=== PATIENT | female | born 1995 ===

== ENCOUNTER 2017-01-19 15:21 | Emergency (ER) | payer MEDICAID ==
[2017-01-19 15:21] VITALS: BMI 26.9
[2017-01-19 15:34] VITALS: BP 115/75; PULSE 70; RESP 16; TEMP 98; O2SAT 100
--- NOTE | 2017-01-19 15:55 | ED PDOC ---
HPI: Female Pain Time Seen by Provider: 01/19/17 15:35 Chief Complaint (Nursing): Female Genitourinary Chief Complaint (Provider): Menstrual cramps History Per: Patient History/Exam Limitations: no limitations Onset/Duration Of Symptoms: Days (x1) Current Symptoms Are (Timing): Still Present Associated Symptoms: denies: Fever, Nausea, Vomiting, Back Pain Additional Complaint(s): Karissa Hudson is a 21 year old female, with no past medical history, who presents to the emergency department complaining of menstrual cramps onset since today. Patient denies any fever, nausea, vomit, and back pain. She reports her last menstrual cycle was 2 months ago, and today is the first day of her period. She states she has been sexually active but doesn't take control or morning after pills. No further medical complaints. PMD: None provided. Abnormal Vaginal Bleeding: No Last Menstral Period: 2 months ago Past Medical History Reviewed: Historical Data, Nursing Documentation, Vital Signs Vital Signs: Last Vital Signs Temp 98 F 01/19/17 15:31 Pulse 70 01/19/17 15:31 Resp 16 01/19/17 15:31 BP 115/75 01/19/17 15:31 Pulse Ox 100 01/19/17 15:31 - Medical History PMH: No Chronic Diseases - Family History Family History: States: Unknown Family Hx - Home Medications Home Medications: Ambulatory Orders Medication Instructions Recorded Clindamycin [Cleocin] 300 mg PO TID #30 cap 07/07/16 Ibuprofen [Motrin Tab] 800 mg PO Q8 PRN #20 tab 07/07/16 Ketorolac Tromethamine [Toradol] 10 mg PO TID #20 cap 01/19/17 - Allergies Allergies/Adverse Reactions: Allergies Allergy/AdvReac Type Severity Reaction Status Date / Time No Known Allergies Allergy Verified 07/07/16 14:58 Review of Systems ROS Statement: Except As Marked, All Systems Reviewed And Found Negative Constitutional: Negative for: Fever Gastrointestinal: Negative for: Nausea, Vomiting Genitourinary Female: Positive for: Vaginal Bleeding, Pelvic Pain Musculoskeletal: Negative for: Back Pain Physical Exam - Reviewed Nursing Documentation Reviewed: Yes Vital Signs Reviewed: Yes - Physical Exam Appears: Positive for: Well, Non-toxic, No Acute Distress Head Exam: Positive for: ATRAUMATIC, NORMAL INSPECTION, NORMOCEPHALIC Skin: Positive for: Normal Color, Warm, Dry Eye Exam: Positive for: Normal appearance Respiratory: Positive for: Normal Breath Sounds. Negative for: Respiratory Distress Gastrointestinal/Abdominal: Positive for: Normal Exam, Bowel Sounds, Soft Pelvic Exam: Negative for: Other (No pelvic tenderness) Back: Positive for: Normal Inspection. Negative for: L CVA Tenderness, R CVA Tenderness Neurologic/Psych: Positive for: Alert, Oriented - ECG O2 Sat by Pulse Oximetry: 100 (RA) Pulse Ox Interpretation: Normal Medical Decision Making Medical Decision Making: Initial Impression: Menstrual cramps Initial Plan: --Urine dipstick --Urine --Ultram 50mg PO --reevaluation-pt improved in ED d/c home with f/u to obgyn Scribe Attestation: Documented by Bharath Howard, acting as a scribe for Melissa GALDAMEZ. Provider Scribe Attestation: All medical record entries made by the Scribe were at my direction and personally dictated by me. I have reviewed the chart and agree that the record accurately reflects my personal performance of the history, physical exam, medical decision making, and the department course for this patient. I have also personally directed, reviewed, and agree with the discharge instructions and disposition. Disposition - Clinical Impression Clinical Impression: Menstrual abnormality, Menstrual cramps - Patient ED Disposition Is Patient to be Admitted: No Counseled Patient/Family Regarding: Studies Performed, Diagnosis, Need For Followup, Rx Given - Disposition [facility] Disposition: Routine/Home Disposition Time: 23:56 Condition: STABLE Prescriptions: Ketorolac Tromethamine [Toradol] 10 mg PO TID #20 cap Instructions: Menstruation (ED) Forms: [facility] ED School/Work Excuse
== END 2017-01-19 17:19 | disposition home or self-care (01) ==
LOC: H.ER 15:21
DX: N92.6 Irregular menstruation, unspecified (principal)

== ENCOUNTER 2017-03-21 18:25 | Emergency (ER) | payer MEDICAID ==
[2017-03-21 18:25] VITALS: BMI 26.9
[2017-03-21 18:52] VITALS: BP 122/96; PULSE 72; RESP 18; TEMP 97.9; O2SAT 99
--- NOTE | 2017-03-21 19:44 | ED PDOC ---
HPI: Dental Pain/Injury Time Seen by Provider: 03/21/17 18:55 Chief Complaint (Nursing): ENT Problem Chief Complaint (Provider): Dental pain History Per: Patient History/Exam Limitations: no limitations Onset/Duration Of Symptoms: Days (x2) Current Symptoms Are (Timing): Still Present Additional Complaint(s): Karissa is a 21 y/o female who presents to the ED complaining of left-sided tooth and jaw pain for 2 days. She states pain radiates to left ear. No fever or chills. Patient has been taking Advil and Tylenol with minimal relief, last dose was around 12PM. She has not yet seen a dentist for symptoms. PMD: Lion Alarcon Past Medical History Reviewed: Historical Data, Nursing Documentation, Vital Signs Vital Signs: Last Vital Signs Temp 97.9 F 03/21/17 18:50 Pulse 72 03/21/17 18:50 Resp 18 03/21/17 18:50 BP 122/96 H 03/21/17 18:50 Pulse Ox 99 03/21/17 18:50 - Medical History PMH: No Chronic Diseases - Surgical History Surgical History: No Surg Hx - Family History Family History: States: No Known Family Hx - Living Arrangements Living Arrangements: With Family - Social History Current smoker - smoking cessation education provided: No Alcohol: None Drugs: Denies - Home Medications Home Medications: Ambulatory Orders Medication Instructions Recorded Clindamycin [Cleocin] 300 mg PO TID #30 cap 07/07/16 Ibuprofen [Motrin Tab] 800 mg PO Q8 PRN #20 tab 07/07/16 Ketorolac Tromethamine [Toradol] 10 mg PO TID #20 cap 01/19/17 Clindamycin [Cleocin] 300 mg PO TID #21 cap 03/21/17 Ibuprofen [Motrin Tab] 800 mg PO Q8 PRN #20 tab 03/21/17 - Allergies Allergies/Adverse Reactions: Allergies Allergy/AdvReac Type Severity Reaction Status Date / Time No Known Allergies Allergy Verified 07/07/16 14:58 Review of Systems ROS Statement: Except As Marked, All Systems Reviewed And Found Negative Constitutional: Negative for: Fever, Chills ENT: Positive for: Ear Pain (Left), Other (Left-sided dental pain) Neurological: Negative for: Headache, Dizziness Physical Exam - Reviewed Nursing Documentation Reviewed: Yes Vital Signs Reviewed: Yes - Physical Exam Appears: Positive for: Well, Non-toxic, No Acute Distress Head Exam: Positive for: ATRAUMATIC, NORMAL INSPECTION, NORMOCEPHALIC Skin: Positive for: Normal Color. Negative for: Rash Eye Exam: Positive for: Normal appearance ENT: Positive for: TM Is/Are (normal bilaterally), Other (Tenderness to palpation of the left lower mandible teeth with slight gingival swelling. No dental abscess.). Negative for: Pharyngeal Erythema Neck: Positive for: Normal, Painless ROM, Supple Neurologic/Psych: Positive for: Alert, Oriented - Laboratory Results Urine POC: Negative - ECG O2 Sat by Pulse Oximetry: 99 (RA) Pulse Ox Interpretation: Normal Medical Decision Making Medical Decision Making: Time: 19:33 Impression: dental pain Initial Plan: --Urine --Toradol 30 mg IM Will d/c with rx motrin and clindamycin. Patient was instructed to follow up with dentist VANNESA. Scribe Attestation: Documented by Tori Mathew, acting as a scribe for Sherie Polk PA-C Provider Scribe Attestation: All medical record entries made by the Scribe were at my direction and personally dictated by me. I have reviewed the chart and agree that the record accurately reflects my personal performance of the history, physical exam, medical decision making, and the department course for this patient. I have also personally directed, reviewed, and agree with the discharge instructions and disposition. Disposition - Clinical Impression Clinical Impression: Pain, dental - Patient ED Disposition Is Patient to be Admitted: No Counseled Patient/Family Regarding: Diagnosis, Need For Followup, Rx Given - Disposition Referrals: [facility] [Outside] Disposition: Routine/Home Disposition Time: 20:08 Condition: STABLE Additional Instructions: Take prescription medications as directed. Follow-up as soon as possible with dentist. Prescriptions: Clindamycin [Cleocin] 300 mg PO TID #21 cap Ibuprofen [Motrin Tab] 800 mg PO Q8 PRN #20 tab PRN Reason: Pain, Moderate (4-7) Instructions: Toothache (ED) Forms: [facility] (Romansh)
== END 2017-03-21 20:33 | disposition home or self-care (01) ==
LOC: H.ER 18:25
DX: K08.89 Other specified disorders of teeth and supporting structures (principal); J02.9 Acute pharyngitis, unspecified
CPT/HCPCS: 81025; 96372; 99281; J1885

== ENCOUNTER 2018-09-17 16:03 | Emergency (ER) | payer MEDICAID ==
[2018-09-17 16:04] VITALS: BMI 26.9
[2018-09-17 16:14] VITALS: BP 115/73; PULSE 76; RESP 16; TEMP 98.5; O2SAT 100
[2018-09-17] MEDS ORDERED: Tdap Vaccine 0.5 ml Vial (10-64 yrs) IM ONE ×2 (16:45→17:07)
--- NOTE | 2018-09-17 16:48 | ED PDOC ---
HPI: General Adult Time Seen by Provider: 09/17/18 16:46 Chief Complaint (Nursing): Abnormal Skin Integrity Chief Complaint (Provider): abscess History Per: Patient (23 y/o female here with abscess/swelling noted x 1 day right axilla. Denies any fevers/chills. Unsure of tetanus status.) Past Medical History Reviewed: Historical Data, Nursing Documentation, Vital Signs Vital Signs: Last Vital Signs Temp 98.5 F 09/17/18 16:10 Pulse 76 09/17/18 16:10 Resp 16 09/17/18 16:10 BP 115/73 09/17/18 16:10 Pulse Ox 100 09/17/18 16:10 - Family History Family History: States: Unknown Family Hx - Home Medications Home Medications: Ambulatory Orders Medication Instructions Recorded Clindamycin [Cleocin] 300 mg PO TID #30 cap 07/07/16 Ibuprofen [Motrin Tab] 800 mg PO Q8 PRN #20 tab 07/07/16 Ketorolac Tromethamine [Toradol] 10 mg PO TID #20 cap 01/19/17 Clindamycin [Cleocin] 300 mg PO TID #21 cap 03/21/17 Ibuprofen [Motrin Tab] 800 mg PO Q8 PRN #20 tab 03/21/17 Cephalexin [Keflex] 500 mg PO BID #14 capsule 09/17/18 Ibuprofen [Motrin] 600 mg PO Q8 PRN #21 tab 09/17/18 Sulfamethoxazole/Trimethoprim 2 tab PO BID #28 tablet 09/17/18 [Bactrim Ds Tablet] - Allergies Allergies/Adverse Reactions: Allergies Allergy/AdvReac Type Severity Reaction Status Date / Time No Known Allergies Allergy Verified 07/07/16 14:58 Review of Systems ROS Statement: Except As Marked, All Systems Reviewed And Found Negative Physical Exam - Reviewed Nursing Documentation Reviewed: Yes Vital Signs Reviewed: Yes - Physical Exam Appears: Positive for: Well, Non-toxic, No Acute Distress Head Exam: Positive for: ATRAUMATIC, NORMAL INSPECTION, NORMOCEPHALIC Skin: Positive for: Normal Color, Warm, DRY Eye Exam: Positive for: EOMI, Normal appearance, PERRL ENT: Positive for: Normal ENT Inspection Neck: Positive for: Normal, Painless ROM Cardiovascular/Chest: Positive for: Regular Rate, Rhythm Respiratory: Positive for: CNT, Normal Breath Sounds Gastrointestinal/Abdominal: Positive for: Normal Exam, Soft Back: Positive for: Normal Inspection Extremity: Positive for: Normal ROM, Other (2.5 cm region of swelling induration and surrounding erythema) Neurological/Psych: Positive for: Awake, Alert, Normal Tone - ECG O2 Sat by Pulse Oximetry: 100 - Progress ED Course And Treament: tdap 0.5ml IM x 1 dose Disposition - Clinical Impression Clinical Impression: Cellulitis and abscess - Patient ED Disposition Is Patient to be Admitted: No - Disposition Disposition: Routine/Home Disposition Time: 16:47 Condition: FAIR Additional Instructions: RETURN ON MONDAY FOR I & D Prescriptions: Cephalexin [Keflex] 500 mg PO BID #14 capsule Ibuprofen [Motrin] 600 mg PO Q8 PRN #21 tab PRN Reason: Pain, Moderate (4-7) Sulfamethoxazole/Trimethoprim [Bactrim Ds Tablet] 2 tab PO BID #28 tablet Instructions: Skin Abscess Forms: [facility] ED School/Work Excuse
== END 2018-09-17 17:15 | disposition home or self-care (01) ==
LOC: H.ER 16:03
DX: L03.111 Cellulitis of right axilla (principal); L02.411 Cutaneous abscess of right axilla; Z23 Encounter for immunization

== ENCOUNTER 2018-10-14 21:18 | Emergency (ER) | payer MEDICAID ==
[2018-10-14 21:22] VITALS: BMI 26.0
[2018-10-14 21:23] VITALS: RESP 18; O2SAT 99
--- NOTE | 2018-10-14 21:34 | ED PDOC ---
HPI: Dental Pain/Injury Time Seen by Provider: 10/14/18 21:28 Chief Complaint (Nursing): Dental Pain History Per: Patient Additional Complaint(s): Pt. states 2 days ago she developed atraumatic L sided lower jaw pain. Pt. states she thinks it is her wisdom teeth growing in. Has been taking Advil without relief. Denies fever, chills, trauma. Past Medical History Reviewed: Historical Data, Nursing Documentation, Vital Signs Vital Signs: Last Vital Signs Temp 98.7 F 10/14/18 21:26 Pulse 80 10/14/18 21:26 Resp 18 10/14/18 21:26 BP 145/81 10/14/18 21: Pulse Ox 99 10/14/18 21:26 Primary Care Provider: FAMILY PROVIDER,NO - Surgical History Surgical History: No Surg Hx - Family History Family History: States: No Known Family Hx - Home Medications Home Medications: Ambulatory Orders Medication Instructions Recorded Clindamycin [Cleocin] 300 mg PO TID #30 cap 07/07/16 Ibuprofen [Motrin Tab] 800 mg PO Q8 PRN #20 tab 07/07/16 Ketorolac Tromethamine [Toradol] 10 mg PO TID #20 cap 01/19/17 Clindamycin [Cleocin] 300 mg PO TID #21 cap 03/21/17 Ibuprofen [Motrin Tab] 800 mg PO Q8 PRN #20 tab 03/21/17 Cephalexin [Keflex] 500 mg PO BID #14 capsule 09/17/18 Ibuprofen [Motrin] 600 mg PO Q8 PRN #21 tab 09/17/18 Sulfamethoxazole/Trimethoprim 2 tab PO BID #28 tablet 09/17/18 [Bactrim Ds Tablet] Amoxicillin [Amoxil 500 mg Cap] 500 mg PO BID #20 cap 10/14/18 Naproxen [Naprosyn] 500 mg PO BID PRN #10 tab 10/14/18 - Allergies Allergies/Adverse Reactions: Allergies Allergy/AdvReac Type Severity Reaction Status Date / Time No Known Allergies Allergy Verified 07/07/16 14:58 Review of Systems ROS Statement: Except As Marked, All Systems Reviewed And Found Negative Physical Exam - Physical Exam Appears: Positive for: Well, Non-toxic, No Acute Distress Skin: Positive for: Normal Color, Warm. Negative for: Rash Eye Exam: Positive for: Normal appearance ENT: Positive for: TM Is/Are (non-erythematous, non-bulging b/l), Other (L lower jaw with tenderness in molar area with minimal gingival swelling ). Negative for: Pharyngeal Erythema, Tonsillar Exudate, Tonsillar Swelling Neck: Positive for: Normal, Painless ROM, Supple Neurological/Psych: Positive for: Awake, Alert, Oriented (x3), Other (no facial asymmetry ) - ECG O2 Sat by Pulse Oximetry: 99 - Progress ED Course And Treament: Toradol 30mg IM ordered. Disposition - Clinical Impression Clinical Impression: Toothache - Patient ED Disposition Is Patient to be Admitted: No - Disposition Referrals: [email or web address] [Outside] [facility] [Outside] [facility] [Outside] Disposition: Routine/Home Disposition Time: 21:36 Condition: STABLE Additional Instructions: FOLLOW UP WITH YOUR DENTIST FOR FURTHER EVALUATION RETURN TO ED IMMEDIATELY IF SYMPTOMS WORSEN MER PRIETO, thank you for letting us take care of you today. Your provider was Ivan Quintero MD and you were treated for THROAT PAIN, EARACHE. The emergency medical care you received today was directed at your acute symptoms. If you were prescribed any medication, please fill it and take as directed. It may take several days for your symptoms to resolve. Return to the Emergency Department if your symptoms worsen, do not improve, or if you have any other problems. Please contact your doctor or call one of the physicians/clinics you have been referred to that are listed on the Patient Visit Information form that is included in your discharge packet. Bring any paperwork you were given at discharge with you along with any medications you are taking to your follow up visit. Our treatment cannot replace ongoing medical care by a primary care provider outside of the emergency department. [facility] you [facility] to be part of your care today. If you had an X-Ray or CT scan: A Radiologist will review the ED reading if any change in treatment is needed we will contact you. If you had a blood, urine, or wound culture: It will take several days for the results, if any change in treatment is needed we will contact you. If you had an STI test: It will take 48 hours for the results. Please call after 1 week if you have not heard back. Prescriptions: Amoxicillin [Amoxil 500 mg Cap] 500 mg PO BID #20 cap Naproxen [Naprosyn] 500 mg PO BID PRN #10 tab PRN Reason: Pain Instructions: Dental Pain (DC)
[2018-10-14 22:16] VITALS: BP 136/83; PULSE 84; TEMP 98.9
== END 2018-10-14 22:14 | disposition home or self-care (01) ==
LOC: H.ER 21:18
DX: K08.89 Other specified disorders of teeth and supporting structures (principal)
CPT/HCPCS: 96372; 99282; J1885